=== PATIENT | male | born 1975 | race Hispanic/Latino ===

== ENCOUNTER 2018-03-14 06:30 | Emergency (ER) | payer OTHER ==
[~2018-03-14] VITALS: Ht 165.1 cm; Wt 93.2 kg
[~2018-03-14 06:30] MED LIST: PRILOSEC20 MG/CAP PO
[2018-03-14] MEDS ORDERED: FLEXERIL PO (08:30)
[2018-03-14] MEDS ORDERED: TORADOL PO (08:30)
[2018-03-14 08:45] VITALS: BP 141/95
== END 2018-03-14 08:45 | disposition home or self-care (01) | DRG 605 ==
LOC: ED 06:30
DX: S40.012A Contusion of left shoulder, initial encounter (principal); M25.512 Pain in left shoulder; V49.59XA Passenger injured in collision with other motor vehicles in traffic accident, initial encounter; Y92.414 Local residential or business street as the place of occurrence of the external cause

== ENCOUNTER 2019-03-04 10:35 | Emergency (ER) | payer OTHER ==
[~2019-03-04] VITALS: Ht 167.6 cm; Wt 79.5 kg
[~2019-03-04 10:35] MED LIST changes: +FLEXERIL PO; +TORADOL PO
[2019-03-04 11:27] LABS: ALBUMIN 5.1 g/dL (3.2-5.0); ALKALINE PHOSPHATASE 109 u/l (38-126); ANION GAP 17 (6-22 (CALC)); BUN 9 mg/dL (9-20); BUN/CREATININE RATIO 15 (12-20 (CALC)); CARBON DIOXIDE 26 mmol/l (22-30); CHLORIDE 99 mmol/l (95-108); CREATININE 0.6 mg/dL (0.7-1.3); GFR > 60 ML/MIN (>=60 (CALC)); GFR FOR AFR.AMER. > 60 ML/MIN (>=60 (CALC)); HEMATOCRIT 48.2 % (39.0-50.0); HEMOGLOBIN 16.7 g/dl (14.0-18.0); LIPASE 134 u/l (23-300); MEAN CELL VOLUME 89.9 fL CALC (80.0-100.0); MEAN CORPUSCULAR HGB 31.2 pG CALC (26.0-32.0); MEAN CORPUSCULAR HGB CONC 34.6 g/L CALC (32.0-36.0); POTASSIUM 4.2 mmol/l (3.5-5.1); RED BLOOD COUNT 5.36 mill/uL (4.70-6.10); RED CELL DISTRI WIDTH 13.7 % (11.5-15.5); SODIUM 138 mmol/l (137-146); TOTAL PROTEIN 8.5 g/dL (6.3-8.2)
[2019-03-04 11:28] LABS: NEUT# 6.41 thou/uL (1.82-7.42); SGOT/AST 49 u/l (17-59)
[2019-03-04 11:32] LABS: URINE BILIRUBIN - DIPSTICK NEGATIVE (NEGATIVE); URINE COLOR STRAW; URINE GLUCOSE - DIPSTICK NEGATIVE (NEGATIVE); URINE KETONE Negative (NEGATIVE)
[2019-03-04 11:33] LABS: ETHYL ALCOHOL 356 mg/dl (0-30)
[2019-03-04 11:33] LABS: BARBITURATES NEGATIVE (NEGATIVE); COCAINE NEGATIVE (NEGATIVE); METHADONE NEGATIVE (NEGATIVE); OXCYCODONE NEGATIVE (NEGATIVE); TETRAHYDROCANNABIONOL NEGATIVE (NEGATIVE); TRICYLIC ANTIDEPRESSANTS NEGATIVE (NEGATIVE); URINE BLOOD DIPSTICK NEGATIVE (NEGATIVE); URINE LEUK ESTERASE NEGATIVE (NEGATIVE); URINE NITRITE - DIPSTICK NEGATIVE (Negative); URINE PH 6.5 (4.5-8.0); URINE PROTEIN - DIPSTICK NEGATIVE (NEG-TRACE); URINE SPECIFIC GRAVITY <=1.005; URINE UROBILINOGEN - DIPSTICK 0.2 E.U./dL (0.2)
[2019-03-04 17:48] VITALS: BP 150/83
[2019-03-05] MEDS ORDERED: B/P PILL PO (03:30)
[2019-03-05] MEDS ORDERED: LIBRIUM25 M1 PO (04:32)
[2019-03-05] MEDS ORDERED: NAPROSYN500 MG PO (04:32)
== END 2019-03-04 18:00 | disposition home or self-care (01) ==
LOC: ED 10:35
PROVIDERS: Family Medicine
DX: F10.129 Alcohol abuse with intoxication, unspecified (principal); R51 Headache; I10 Essential (primary) hypertension; R25.9 Unspecified abnormal involuntary movements; R55 Syncope and collapse; H53.8 Other visual disturbances

== ENCOUNTER 2019-03-05 03:10 | Emergency (ER) | payer SELFPAY ==
[~2019-03-05] VITALS: Ht 167.6 cm; Wt 82.0 kg
[2019-03-05] MEDS ORDERED: B/P PILL PO (03:30)
[2019-03-05 03:56] LABS: ALBUMIN 4.7 g/dL (3.2-5.0); ALKALINE PHOSPHATASE 102 u/l (38-126); ANION GAP 15 (6-22 (CALC)); BUN 6 mg/dL (9-20); BUN/CREATININE RATIO 10 (12-20 (CALC)); CARBON DIOXIDE 27 mmol/l (22-30); CHLORIDE 101 mmol/l (95-108); CREATININE 0.6 mg/dL (0.7-1.3); ETHYL ALCOHOL 32 mg/dl (0-30); GFR > 60 ML/MIN (>=60 (CALC)); GFR FOR AFR.AMER. > 60 ML/MIN (>=60 (CALC)); POTASSIUM 3.4 mmol/l (3.5-5.1); SGOT/AST 36 u/l (17-59); SODIUM 139 mmol/l (137-146); TOTAL PROTEIN 7.9 g/dL (6.3-8.2)
[2019-03-05 03:58] LABS: HEMATOCRIT 44.8 % (39.0-50.0); HEMOGLOBIN 15.6 g/dl (14.0-18.0); IMMATURE GRANULOCYTES 0.4 % (0.0-5.0); MEAN CELL VOLUME 89.1 fL CALC (80.0-100.0); MEAN CORPUSCULAR HGB CONC 34.8 g/L CALC (32.0-36.0); NEUT# 5.94 thou/uL (1.82-7.42); RED BLOOD COUNT 5.03 mill/uL (4.70-6.10); RED CELL DISTRI WIDTH 13.3 % (11.5-15.5)
[2019-03-05 03:59] LABS: BILIRUBIN, TOTAL 1.6 mg/dL (0.0-1.4)
[2019-03-05 04:11] LABS: URINE BILIRUBIN - DIPSTICK NEGATIVE (NEGATIVE); URINE BLOOD DIPSTICK NEGATIVE (NEGATIVE); URINE COLOR YELLOW; URINE GLUCOSE - DIPSTICK NEGATIVE (NEGATIVE); URINE KETONE NEGATIVE (NEGATIVE); URINE LEUK ESTERASE NEGATIVE (NEGATIVE); URINE NITRITE - DIPSTICK NEGATIVE (Negative); URINE PH 8.5 (4.5-8.0); URINE PROTEIN - DIPSTICK 30 mg/dL (NEG-TRACE); URINE SPECIFIC GRAVITY 1.015; URINE UROBILINOGEN - DIPSTICK 0.2 E.U./dL (0.2)
[2019-03-05 04:17] LABS: BARBITURATES NEGATIVE (NEGATIVE); COCAINE NEGATIVE (NEGATIVE); METHADONE NEGATIVE (NEGATIVE); OXCYCODONE NEGATIVE (NEGATIVE); TETRAHYDROCANNABIONOL NEGATIVE (NEGATIVE); TRICYLIC ANTIDEPRESSANTS NEGATIVE (NEGATIVE)
[2019-03-05 04:23] LABS: URINE BACTERIA RARE hpf; URINE FINE GRAN CAST RARE lpf; URINE SQUAMOUS EPITHELIAL CELL RARE EPI/hpf (0-FEW)
[2019-03-05] MEDS ORDERED: NAPROSYN500 MG PO (04:32)
[2019-03-05] MEDS ORDERED: LIBRIUM25 M1 PO (04:32)
[2019-03-05 04:35] VITALS: BP 143/72
== END 2019-03-05 04:40 | disposition home or self-care (01) | DRG 103 ==
LOC: ED 03:10
PROVIDERS: Emergency Medicine
DX: R51 Headache (principal); F10.10 Alcohol abuse, uncomplicated; I10 Essential (primary) hypertension

== ENCOUNTER 2019-09-19 00:15 | Emergency (ER) | payer MEDICAID ==
[~2019-09-19] VITALS: Ht 167.6 cm; Wt 91.0 kg
[~2019-09-19 00:15] MED LIST changes: +B/P PILL PO; +LIBRIUM25 M1 PO; +NAPROSYN500 MG PO
[2019-09-19 01:42] LABS: HEMATOCRIT 46.6 % (39.0-50.0); HEMOGLOBIN 16.7 g/dl (14.0-18.0); IMMATURE GRANULOCYTES 0.2 % (0.0-5.0); MEAN CELL VOLUME 88.6 fL CALC (80.0-100.0); MEAN CORPUSCULAR HGB 31.7 pG CALC (26.0-32.0); MEAN CORPUSCULAR HGB CONC 35.8 g/L CALC (32.0-36.0); NEUT# 3.48 thou/uL (1.82-7.42); RED BLOOD COUNT 5.26 mill/uL (4.70-6.10); RED CELL DISTRI WIDTH 13.2 % (11.5-15.5)
[2019-09-19 01:43] LABS: URINE BILIRUBIN - DIPSTICK NEGATIVE (NEGATIVE); URINE BLOOD DIPSTICK NEGATIVE (NEGATIVE); URINE COLOR YELLOW; URINE GLUCOSE - DIPSTICK NEGATIVE (NEGATIVE); URINE KETONE NEGATIVE (NEGATIVE); URINE LEUK ESTERASE NEGATIVE (NEGATIVE); URINE NITRITE - DIPSTICK NEGATIVE (Negative); URINE PROTEIN - DIPSTICK NEGATIVE (NEG-TRACE); URINE UROBILINOGEN - DIPSTICK 0.2 E.U./dL (0.2)
[2019-09-19 01:44] LABS: BARBITURATES NEGATIVE (NEGATIVE); COCAINE NEGATIVE (NEGATIVE); METHADONE NEGATIVE (NEGATIVE); OXCYCODONE NEGATIVE (NEGATIVE); TETRAHYDROCANNABIONOL NEGATIVE (NEGATIVE); TRICYLIC ANTIDEPRESSANTS NEGATIVE (NEGATIVE)
[2019-09-19 01:56] LABS: ALBUMIN 4.7 g/dL (3.2-5.0); ALKALINE PHOSPHATASE 92 u/l (38-126); AMYLASE 56 u/l (30-110); ANION GAP 18 (6-22 (CALC)); BUN 12 mg/dL (9-20); BUN/CREATININE RATIO 19 (12-20 (CALC)); CARBON DIOXIDE 23 mmol/l (22-30); CHLORIDE 102 mmol/l (95-108); CREATININE 0.7 mg/dL (0.7-1.3); ETHYL ALCOHOL 158 mg/dl (0-30); GFR > 60 ML/MIN (>=60 (CALC)); GFR FOR AFR.AMER. > 60 ML/MIN (>=60 (CALC)); LIPASE 67 u/l (23-300); SGOT/AST 47 u/l (17-59); SODIUM 140 mmol/l (137-146); TOTAL PROTEIN 8.5 g/dL (6.3-8.2)
[2019-09-19 02:01] LABS: BILIRUBIN, TOTAL 0.8 mg/dL (0.0-1.4)
[2019-09-19 02:51] VITALS: BP 148/80
== END 2019-09-19 02:51 | disposition home or self-care (01) ==
LOC: ED 00:15
PROVIDERS: Family Medicine
DX: R51 Headache (principal); F10.10 Alcohol abuse, uncomplicated; I10 Essential (primary) hypertension

== ENCOUNTER 2020-01-30 | Emergency (ER) | payer OTHER ==
[2020-01-30 05:30] LABS: HEMATOCRIT 47.4 % (39.0-50.0); HEMOGLOBIN 16.6 g/dl (14.0-18.0); IMMATURE GRANULOCYTES 0.2 % (0.0-5.0); MEAN CELL VOLUME 87.8 fL CALC (80.0-100.0); MEAN CORPUSCULAR HGB 30.7 pG CALC (26.0-32.0); NEUT# 4.63 thou/uL (1.82-7.42); RED BLOOD COUNT 5.4 mill/uL (4.70-6.10); RED CELL DISTRI WIDTH 12.8 % (11.5-15.5)
[2020-01-30 05:35] LABS: URINE BILIRUBIN - DIPSTICK NEGATIVE (NEGATIVE); URINE BLOOD DIPSTICK NEGATIVE (NEGATIVE); URINE COLOR YELLOW; URINE GLUCOSE - DIPSTICK NEGATIVE (NEGATIVE); URINE KETONE TRACE mg/dL (NEGATIVE); URINE LEUK ESTERASE NEGATIVE (NEGATIVE); URINE NITRITE - DIPSTICK NEGATIVE (Negative); URINE PH 8.5 (4.5-8.0); URINE PROTEIN - DIPSTICK NEGATIVE (NEG-TRACE); URINE SPECIFIC GRAVITY 1.015; URINE UROBILINOGEN - DIPSTICK 0.2 E.U./dL (0.2)
[2020-01-30 05:39] LABS: BARBITURATES NEGATIVE (NEGATIVE); COCAINE NEGATIVE (NEGATIVE); METHADONE NEGATIVE (NEGATIVE); OXCYCODONE NEGATIVE (NEGATIVE); TETRAHYDROCANNABIONOL NEGATIVE (NEGATIVE); TRICYLIC ANTIDEPRESSANTS NEGATIVE (NEGATIVE)
[2020-01-30 05:48] LABS: PROTHROMBIN TIME 10.8 SECONDS (9.0-12.5)
[2020-01-30 05:50] LABS: ALBUMIN 4.7 g/dL (3.2-5.0); ALKALINE PHOSPHATASE 97 u/l (38-126); ANION GAP 17 (6-22 (CALC)); BUN 11 mg/dL (9-20); BUN/CREATININE RATIO 17 (12-20 (CALC)); CARBON DIOXIDE 23 mmol/l (22-30); CHLORIDE 98 mmol/l (95-108); CREATININE 0.6 mg/dL (0.7-1.3); GFR > 60 ML/MIN (>=60 (CALC)); GFR FOR AFR.AMER. > 60 ML/MIN (>=60 (CALC)); MAGNESIUM 1.8 mg/dL (1.6-2.3); POTASSIUM 3.8 mmol/l (3.5-5.1); SGOT/AST 32 u/l (17-59); SODIUM 135 mmol/l (137-146); TOTAL PROTEIN 8.1 g/dL (6.3-8.2)
[2020-01-30 05:53] LABS: BILIRUBIN, TOTAL 1.3 mg/dL (0.0-1.4)
[2020-01-30 06:01] LABS: MYOGLOBIN 44 ng/mL (0 - 121)
[2020-01-30] MEDS ORDERED: ONDANSETRON4 MG PO (06:46)
[2020-01-30] MEDS ORDERED: AMOXICILLIN500 M2 PO (06:46)
[2020-01-30] MEDS ORDERED: FIORICET PO (06:46)
== END 2020-01-30 06:46 | disposition home or self-care (01) | DRG 153 ==
PROVIDERS: Emergency Medicine
DX: J32.2 Chronic ethmoidal sinusitis (principal); F10.10 Alcohol abuse, uncomplicated; I10 Essential (primary) hypertension

== ENCOUNTER 2021-10-16 14:47 | Emergency (ER) | payer OTHER ==
[~2021-10-16] VITALS: Ht 165.1 cm; Wt 80.0 kg
[~2021-10-16 14:47] MED LIST changes: +AMOXICILLIN500 M2 PO; +FIORICET PO; +ONDANSETRON4 MG PO
[2021-10-16 18:46] VITALS: BP 131/73
== END 2021-10-16 19:05 | disposition home or self-care (01) ==
LOC: ED 14:47
DX: I10 Essential (primary) hypertension (principal); E78.5 Hyperlipidemia, unspecified; Z20.822 Contact with and (suspected) exposure to COVID-19

== ENCOUNTER 2023-10-17 17:13 | Inpatient (IN) | payer OTHER ==
[2023-10-17] VITALS (9 sets, daily range): BP systolic 116–139; BP diastolic 60–84
[~2023-10-17] VITALS: Ht 165.1 cm; Wt 84.4 kg
[2023-10-17 19:56] LABS: EOS% 0.1 % (0-8); HEMATOCRIT 43.8 % (39.0-50.0); HEMOGLOBIN 15.7 g/dl (14.0-18.0); IMMATURE GRANULOCYTES 0.1 % (0.0-5.0); LYMPH% 15.1 % (15-41); MEAN CORPUSCULAR HGB 31.5 pG CALC (26.0-32.0); MEAN CORPUSCULAR HGB CONC 35.8 g/dL CAL (32.0-36.0); MONO% 4.8 % (2-13); NEUT# 6.73 thou/uL (1.82-7.42); NEUT% 79.9 % (42-76); RED BLOOD COUNT 4.99 mill/uL (4.70-6.10); RED CELL DISTRI WIDTH 11.6 % (11.5-15.5)
[2023-10-17 19:59] LABS: MEAN CELL VOLUME 87.8 fL CALC (80.0-100.0)
[2023-10-17 20:21] LABS: ALBUMIN 4.7 g/dL (3.2-5.0); ALKALINE PHOSPHATASE 79 u/l (38-126); BUN 8 mg/dL (9-20); BUN/CREATININE RATIO 14 (12-20 (CALC)); CHLORIDE 90 mmol/l (95-108); CREATININE 0.6 mg/dL (0.7-1.3); GFR FOR AFR.AMER. > 60 ML/MIN (>=60 (CALC)); GFR OTHER RACES > 60 ML/MIN (>=60 (CALC)); SGOT/AST 34 u/l (17-59); TOTAL PROTEIN 7.8 g/dL (6.3-8.2)
[2023-10-17 20:22] LABS: ANION GAP 16 (6-22 (CALC)); BILIRUBIN, TOTAL 2.3 mg/dL (0.2-1.3); CARBON DIOXIDE 22 mmol/l (22-30); SODIUM 124 mmol/l (137-146)
[2023-10-17 22:04] LABS: URINE BILIRUBIN - DIPSTICK Negative (NEGATIVE); URINE BLOOD DIPSTICK Negative (NEGATIVE); URINE GLUCOSE - DIPSTICK Negative (NEGATIVE); URINE KETONE Negative (NEGATIVE); URINE LEUK ESTERASE Negative (NEGATIVE); URINE NITRITE - DIPSTICK Negative (Negative); URINE PH 6.5 (4.5-8.0); URINE PROTEIN - DIPSTICK Negative (NEG-TRACE); URINE UROBILINOGEN - DIPSTICK 0.2 E.U./dL (0.2)
[2023-10-17 22:05] LABS: URINE COLOR Yellow
[2023-10-18 00:36] VITALS: BP 108/67
[2023-10-18 04:16] VITALS: BP 100/59
[2023-10-18 06:46] LABS: HEMATOCRIT 44.1 % (39.0-50.0); HEMOGLOBIN 15.9 g/dl (14.0-18.0); IMMATURE GRANULOCYTES 0.1 % (0.0-5.0); LYMPH% 9.4 % (15-41); MEAN CELL VOLUME 88.7 fL CALC (80.0-100.0); MEAN CORPUSCULAR HGB CONC 36.1 g/dL CAL (32.0-36.0); MONO% 1.2 % (2-13); NEUT% 89.3 % (42-76); RED BLOOD COUNT 4.97 mill/uL (4.70-6.10); RED CELL DISTRI WIDTH 11.9 % (11.5-15.5)
[2023-10-18 07:00] VITALS: BP 101/43
[2023-10-18 07:01] LABS: ALBUMIN 4.3 g/dL (3.2-5.0); ALKALINE PHOSPHATASE 77 u/l (38-126); BILIRUBIN, TOTAL 1.5 mg/dL (0.2-1.3); BUN 11 mg/dL (9-20); BUN/CREATININE RATIO 15 (12-20 (CALC)); CALCULATED LDLCHOLESTEROL 77 mg/dL (62-129 (CALC)); CARBON DIOXIDE 20 mmol/l (22-30); CHOLESTEROL HDL RATIO 2.4 (<4.4 (CALC)); CREATININE 0.7 mg/dL (0.7-1.3); GFR FOR AFR.AMER. > 60 ML/MIN (>=60 (CALC)); GFR OTHER RACES > 60 ML/MIN (>=60 (CALC)); HDL CHOLESTEROL 60 mg/dL (39.0-59.0); MAGNESIUM 2.1 mg/dL (1.6-2.3); POTASSIUM 4.5 mmol/l (3.5-5.1); SGOT/AST 27 u/l (17-59); TOTAL PROTEIN 7.1 g/dL (6.3-8.2); TOTAL TRIGLYCERIDES 32 mg/dl (0-149); VLDL CHOLESTROL 6 mg/dl (5-56 (CALC))
[2023-10-18 07:06] LABS: ANION GAP 16 (6-22 (CALC)); CHLORIDE 102 mmol/l (95-108); SODIUM 133 mmol/l (137-146); TOTAL CHOLESTEROL 143 mg/dl (0-199)
[2023-10-18 10:32] VITALS: BP 118/69
[2023-10-18] MEDS ORDERED: LIPITOR20 M1 PO (11:23)
[2023-10-18] MEDS ORDERED: COZAAR50 MG PO (11:26)
[2023-10-18] MEDS ORDERED: FLUOXETINE HYDR20 MG PO (11:27)
== END 2023-10-18 14:45 | disposition home or self-care (01) | DRG 641 ==
LOC: ED 17:13 → MS2 21:12
PROVIDERS: Nurse Practitioner; ADMIT Student in an Organized Health Care Education/Training Program; ATTEND Student in an Organized Health Care Education/Training Program
DX: E87.1 Hypo-osmolality and hyponatremia (principal); I10 Essential (primary) hypertension; E78.5 Hyperlipidemia, unspecified

== ENCOUNTER 2024-11-07 06:12 | Emergency (ER) | payer OTHER ==
[~2024-11-07] VITALS: Ht 165.1 cm; Wt 80.0 kg
[2024-11-07] VITALS (7 sets, daily range): BP systolic 111–119; BP diastolic 70–76
[~2024-11-07 06:12] MED LIST changes: +COZAAR50 MG PO; +FLUOXETINE HYDR20 MG PO; +LIPITOR20 M1 PO
[2024-11-07 06:50] LABS: BASO% 0.2 % (0-3); EOS% 0.5 % (0-8); HEMATOCRIT 44.2 % (39.0-50.0); HEMOGLOBIN 15.3 g/dl (14.0-18.0); MEAN CELL VOLUME 88.8 fL CALC (80.0-100.0); MEAN CORPUSCULAR HGB 30.7 pG CALC (26.0-32.0); MEAN CORPUSCULAR HGB CONC 34.6 g/dL CAL (32.0-36.0); MONO% 16.7 % (2-13); NEUT# 2.7 thou/uL (1.82-7.42); NEUT% 65.6 % (42-76); RED BLOOD COUNT 4.98 mill/uL (4.70-6.10); RED CELL DISTRI WIDTH 12.2 % (11.5-15.5)
[2024-11-07 07:12] LABS: ALBUMIN 4.1 g/dL (3.2-5.0); CREATININE 0.8 mg/dL (0.7-1.3); POTASSIUM 3.7 mmol/l (3.5-5.1)
[2024-11-07 07:16] LABS: BILIRUBIN, TOTAL 0.6 mg/dL (0.2-1.3)
[2024-11-07] MEDS ORDERED: TAM75CAP PO (07:29)
[2024-11-07] MEDS ORDERED: ZOFRAN4 MG/TAB PO (07:29)
== END 2024-11-07 07:49 | disposition home or self-care (01) | DRG 153 ==
LOC: ED 06:12
PROVIDERS: Internal Medicine
DX: J11.1 Influenza due to unidentified influenza virus with other respiratory manifestations (principal); E87.1 Hypo-osmolality and hyponatremia; I10 Essential (primary) hypertension; E78.5 Hyperlipidemia, unspecified; Z20.822 Contact with and (suspected) exposure to COVID-19

== ENCOUNTER 2024-11-08 08:27 | Emergency (ER) | payer OTHER ==
[2024-11-08] VITALS (12 sets, daily range): BP systolic 99–124; BP diastolic 68–79
[~2024-11-08] VITALS: Ht 165.1 cm; Wt 75.0 kg
[~2024-11-08 08:27] MED LIST changes: +TAM75CAP PO; +ZOFRAN4 MG/TAB PO
[2024-11-08] MEDS ORDERED: SODIUM CHLORIDE 0.9% 1,000 ML IV ONE ×2 (08:35→08:45)
[2024-11-08] MEDS ORDERED: ONDANSETRON HCl 4 MG/2 ML SDV IV ONE (08:40)
[2024-11-08 08:47] LABS: BASO% 0.2 % (0-3); EOS% 0.2 % (0-8); HEMATOCRIT 47.5 % (39.0-50.0); HEMOGLOBIN 16.2 g/dl (14.0-18.0); IMMATURE GRANULOCYTES 0.2 % (0.0-5.0); LYMPH% 23.7 % (15-41); MEAN CELL VOLUME 90.3 fL CALC (80.0-100.0); MEAN CORPUSCULAR HGB 30.8 pG CALC (26.0-32.0); MEAN CORPUSCULAR HGB CONC 34.1 g/dL CAL (32.0-36.0); MONO% 12.4 % (2-13); NEUT# 2.96 thou/uL (1.82-7.42); NEUT% 63.3 % (42-76); RED BLOOD COUNT 5.26 mill/uL (4.70-6.10); RED CELL DISTRI WIDTH 12.5 % (11.5-15.5)
[2024-11-08 09:10] LABS: ALBUMIN 4.5 g/dL (3.2-5.0); BILIRUBIN, TOTAL 0.6 mg/dL (0.2-1.3); POTASSIUM 3.7 mmol/l (3.5-5.1); TOTAL PROTEIN 7.8 g/dL (6.3-8.2)
== END 2024-11-08 11:10 | disposition home or self-care (01) | DRG 312 ==
LOC: ED 08:27
PROVIDERS: Family Medicine
DX: I95.1 Orthostatic hypotension (principal); J11.1 Influenza due to unidentified influenza virus with other respiratory manifestations; I10 Essential (primary) hypertension; E78.5 Hyperlipidemia, unspecified
CPT/HCPCS: J2405